=== PATIENT | female | born 1955 | race Caucasian/White ===

== ENCOUNTER 2024-06-26 09:50 | Outpatient (CLI) | payer MEDICARE, BC, SELFPAY ==
--- NOTE | ~2024-06-26 | MR_ITS ---
MRI of the lumbar spine Clinical History: Back pain Technique: Axial T2-weighted images, and sagittal T1-weighted, T2-weighted, and T2 fat-sat images wer e acquired. Findings: No fracture or subluxation identified. No suspicious bone marrow signal abnormality identif ied. There is dextroscoliosis of the lumbar spine. At L1-L2, there is mild to moderate degenerative disc narrowing. There is minimal disc bulge and mild to moderate facet arthropathy. No central canal stenosis. There is mild left neural foraminal narrow ing. Right neural foramen preserved. At L2-L3, there is severe degenerative disc narrowing. There is advanced facet arthropathy. No signif icant disc bulge/herniation. No spinal canal stenosis. There is moderate left neural foraminal narrow ing, and minimal right neural foraminal narrowing. At L3-L4, there is diffuse disc bulge and severe facet arthropathy. No central canal stenosis. There is moderate bilateral neural foraminal narrowing, left worse than right. At L4-L5, there is advanced degenerative disc narrowing with minimal bulge. There is severe facet art hropathy. No central canal stenosis. There is moderate right neural foraminal narrowing. Left neural foramen preserved. At L5-S1, there is no disc bulge or herniation. There is severe facet arthropathy. No spinal canal st enosis or neural foraminal narrowing. Paravertebral soft tissues are unremarkable. Impression: Moderate degenerative spondylosis, with multilevel neural foraminal narrowing and degenerative disc c hange, as detailed above. Dextroscoliosis. Reviewed, dictated and finalized at [facility]. Impression: Moderate degenerative spondylosis, with multilevel neural foraminal narrowing a nd degenerative disc change, as detailed above. Dextroscoliosis.
== END 2024-06-26 09:51 | disposition home or self-care (01) ==
LOC: GOSHIMG 09:55
DX: M47.896 Other spondylosis, lumbar region (principal); M47.897 Other spondylosis, lumbosacral region; M41.86 Other forms of scoliosis, lumbar region; G89.29 Other chronic pain
CPT/HCPCS: 72148